=== PATIENT | male | born 1980 | race Caucasian/White ===

== ENCOUNTER 2019-07-16 21:01 | Emergency (ER) | payer MEDICAID ==
[~2019-07-16] VITALS: Ht 175.3 cm; Wt 87.1 kg
[2019-07-16 21:17] VITALS: BP_SYST 122
[2019-07-16] MEDS ORDERED: LIDOCAINE 1% 10 MG/ML, 20 ML MDV INJ ONE (22:30)
[2019-07-16] MEDS ORDERED: LIDOCAINE 1%, 20 ML MDV 20 ML ONE (22:32)
[2019-07-16] MEDS ORDERED: DIPH-TET-PERTUS Vaccine 0.5 ML VIAL (ADACEL) I.M. ONE (23:30)
[2019-07-16 23:58] VITALS: BP_SYST 128
== END 2019-07-16 23:58 ==
LOC: SED 21:01
DX: S62.633A Displaced fracture of distal phalanx of left middle finger, initial encounter for closed fracture (principal); S62.613A Displaced fracture of proximal phalanx of left middle finger, initial encounter for closed fracture; L03.012 Cellulitis of left finger; V29.9XXA Motorcycle rider (driver) (passenger) injured in unspecified traffic accident, initial encounter; Y93.89 Activity, other specified; Y92.410 Unspecified street and highway as the place of occurrence of the external cause; Y99.8 Other external cause status
CPT/HCPCS: 73140; 90471; 99283; 90715; J2001